=== PATIENT | male | born 1965 | race Caucasian/White ===

== ENCOUNTER 2019-07-07 16:14 | Emergency (ER) | payer OTHER, BC ==
[~2019-07-07] VITALS: Ht 180.3 cm; Wt 150.0 kg
[~2019-07-07 16:14] MED LIST: HYZAAR 100-251 EACH PO; TYLENOL EXTRA500 M1 PO
[2019-07-07] MEDS ORDERED: ASPIRIN 81M81 MG/TA2 PO (16:27)
[2019-07-07] MEDS ORDERED: TESTOSTERO200 MG/1 M IM (16:28)
[2019-07-07] MEDS ORDERED: ROSUVASTATIN CA10 MG PO (16:29)
[2019-07-07] MEDS ORDERED: PANTOPRAZOLE SO40 MG PO (16:29)
[2019-07-07 18:25] VITALS: BP 137/93
== END 2019-07-07 18:30 | disposition home or self-care (01) ==
LOC: ED 16:14
DX: S50.11XA Contusion of right forearm, initial encounter (principal); S80.12XA Contusion of left lower leg, initial encounter; S80.11XA Contusion of right lower leg, initial encounter; I10 Essential (primary) hypertension; K21.9 Gastro-esophageal reflux disease without esophagitis; R40.2410 Glasgow coma scale score 13-15, unspecified time; E78.5 Hyperlipidemia, unspecified; V49.09XA Driver injured in collision with other motor vehicles in nontraffic accident, initial encounter

== ENCOUNTER → 2019-12-04 | Outpatient (CLI) | payer OTHER, BC ==
[~2019-12-04] MED LIST changes: +ASPIRIN 81M81 MG/TA2 PO; +PANTOPRAZOLE SO40 MG PO; +ROSUVASTATIN CA10 MG PO; +TESTOSTERO200 MG/1 M IM
== END ==
LOC: RAD 09:45
DX: K57.30 Diverticulosis of large intestine without perforation or abscess without bleeding (principal); N28.9 Disorder of kidney and ureter, unspecified

== ENCOUNTER → 2022-01-30 | Outpatient (CLI) | payer BC ==
[2022-01-30 07:43] LABS: BASO # 0.02 K/mm3 (0.02-0.10); EOS % 2.3 % (0.0-4.0); HEMATOCRIT 52.3 % (42.0-52.0); HEMOGLOBIN 16.7 g/dL (13.5-18.0); MEAN CELL VOLUME 82 fl (78-100); MEAN CORPUSCULAR HEMOGLOBIN 26 pg (27-31); MEAN CORPUSCULAR HGB CONC 32 g/dL (33-37); MEAN PLATELET VOLUME 9.9 fl (7.4-10.4); MONO # 0.89 K/mm3 (0.20-0.80); NEU # 6.77 K/mm3 (1.40-6.50); PLATELET COUNT 202 K/mm3 (130-400); RED BLOOD COUNT 6.37 M/mm3 (4.20-5.60); RED CELL DISTRIBUTION WIDTH 17.4 % (11.5-14.5); WHITE BLOOD COUNT 8.8 K/mm3 (4.8-10.8)
[2022-01-30 08:16] LABS: POTASSIUM 3.8 mmol/L (3.5-5.1)
[2022-01-30 08:17] LABS: CALCIUM 9.1 mg/dL (8.3-10.5)
[2022-01-30 08:18] LABS: TOTAL PROTEIN 7.1 g/dL (6.4-8.3)
[2022-01-30 08:20] LABS: TOTAL BILIRUBIN 0.9 mg/dL (0.2-1.2)
[2022-01-30 08:25] LABS: MAGNESIUM 2.1 mg/dL (1.60-2.60)
[2022-01-31 10:33] LABS: TESTOSTERONE 166 ng/dL (221-716)
== END ==
LOC: LAB 07:25
PROVIDERS: Internal Medicine
DX: Z00.00 Encounter for general adult medical examination without abnormal findings (principal); Z12.5 Encounter for screening for malignant neoplasm of prostate; Z12.11 Encounter for screening for malignant neoplasm of colon

== ENCOUNTER → 2022-06-04 | Outpatient (CLI) | payer BC | LOC: RAD 08:34 | DX: I71.2 Thoracic aortic aneurysm, without rupture (principal); I51.7 Cardiomegaly | CPT/HCPCS: Q9967 ==

== ENCOUNTER → 2024-12-01 | Outpatient (CLI) | payer BC ==
[2024-12-01 10:02] LABS: BASO # 0.04 K/mm3 (0.02-0.10); EOS # 0.21 K/mm3 (0.04-0.40); EOS % 2.5 % (0.0-4.0); HEMATOCRIT 50.2 % (42.0-52.0); LYMPH# 0.99 K/mm3 (1.50-4.00); MEAN CELL VOLUME 82 fl (78-100); MEAN CORPUSCULAR HEMOGLOBIN 26 pg (27-31); MEAN CORPUSCULAR HGB CONC 32 g/dL (33-37); MEAN PLATELET VOLUME 9.9 fl (7.4-10.4); MONO # 0.82 K/mm3 (0.20-0.80); NEU # 6.45 K/mm3 (1.40-6.50); PLATELET COUNT 202 K/mm3 (130-400); RED BLOOD COUNT 6.16 M/mm3 (4.20-5.60); RED CELL DISTRIBUTION WIDTH 17.9 % (11.5-14.5); WHITE BLOOD COUNT 8.6 K/mm3 (4.8-10.8)
[2024-12-01 10:07] LABS: ALBUMIN 4.1 g/dL (3.5-5.0)
[2024-12-01 10:08] LABS: CALCIUM 8.9 mg/dL (8.3-10.5)
[2024-12-01 10:09] LABS: TOTAL PROTEIN 7.6 g/dL (6.4-8.3)
[2024-12-01 10:11] LABS: TOTAL BILIRUBIN 1.1 mg/dL (0.2-1.2)
[2024-12-01 10:12] LABS: URINE APPEARANCE CLEAR (CLEAR); URINE COLOR YELLOW (YELLOW); URINE GLUCOSE NEGATIVE (NEGATIVE); URINE PROTEIN(semi-quant) NEGATIVE (NEGATIVE)
[2024-12-01 10:13] LABS: URINE BILIRUBIN NEGATIVE (NEGATIVE); URINE BLOOD NEGATIVE (NEGATIVE); URINE KETONE NEGATIVE (NEGATIVE); URINE LEUKOCYTE ESTERASE NEGATIVE (NEGATIVE); URINE NITRATE NEGATIVE (NEGATIVE)
[2024-12-01 10:16] LABS: MAGNESIUM 2.1 mg/dL (1.60-2.60)
[2024-12-01 20:30] LABS: CREATININE OTHER SOURCE 36 mg/dL (63-166)
[2024-12-03 09:05] LABS: TESTOSTERONE 238 ng/dL (221-716)
== END ==
LOC: LAB 09:41
PROVIDERS: Internal Medicine
DX: Z12.5 Encounter for screening for malignant neoplasm of prostate (principal); E23.0 Hypopituitarism; R73.03 Prediabetes; I10 Essential (primary) hypertension; K90.9 Intestinal malabsorption, unspecified; E78.2 Mixed hyperlipidemia